=== PATIENT | female | born 1955 | race Caucasian/White ===

== ENCOUNTER → 2017-11-20 | Day surgery (SDC) | payer OTHER, MEDICARE ==
[2017-11-14 09:52] VITALS: Ht 160 cm; Wt 125.0 kg
[~2017-11-20] VITALS: Ht 160 cm; Wt 125.0 kg
[~2017-11-20] MED LIST: AMLO5TAB3 PO; ASPI-319 PO; ATEN50TA8 PO; CHOL1000 PO; FURO20TA PO; HYDR25CA PO; LIDOCAINE HCL 2% 2 ML VIAL (20MG/ML) ONE; LISI-461 PO; LISI20TA3 PO; OMEP-334 PO; ONDANSETRON INJ 2 MG/ML 2 ML VIAL IV PRN; PROPOFOL IV EMULSION 10 MG/ML 20 ML VIAL ONE; PRVC/40 PO
--- NOTE | 2017-11-20 10:13 | Endo History and Physical ---
History & Physical Date of Service: Nov 20, 2017. Chief Complaint: screening Referring Physician: Dr. Kirk History of Present Illness Patient referred for colorectal cancer screening. She recalls that she may have been diagnosed with ulcerative colitis several years ago. Her last colonoscopy was performed in 2011 and notable for normal examination aside from internal hemorrhoids and diverticulosis. Past Surgical History Hx Cardiac Surgery: No Hx Internal Defibrillator: No Hx Pacemaker: No Hx Abdominal Surgery: Yes (LAP RAFA, DEBBIE BSO) Hx of Implantable Prosthesis: No Hx Post-Op Nausea and Vomiting: No Hx Cancer Surgery: No Hx Thoracic Surgery: No Hx Orthopedic: No Hx Urinary Tract Surgery: No Family History Polyp Social History Smoking Status: Never Smoker Hx Substance Use: No Hx Alcohol Use: No Allergies Coded Allergies: Sulfa Drugs (Verified Allergy, Intermediate, MUSCLE ACHES, 11/20/17) Penicillins (Verified Allergy, Unknown, UNKNOWN, 11/20/17) TOLERATES AMOXICILLIN STATES FATHER HAD A BAD REACTION TO PENICILLIN Current Medications Reported Home Medications Medications Dose Route/Sig Max Daily Dose Days Date Category Vistaril (Hydroxyzine Pamoate) 25 Mg Cap 1 Cap PO QAM 11/14/[address] (Omeprazole) 40 Mg Cap 1 Cap PO DAILY PRN 11/14/17 Reported Pravastatin Sodium (Pravastatin Sod) 40 Mg Tab 1 Tab PO HS 11/14/17 Reported Lasix (Furosemide) 20 Mg Tab 10 Mg PO QAM 11/14/17 Reported Ecotrin Or Generic (Aspirin) 81 Mg Tab 81 Mg PO QAM 11/14/17 Reported Vitamin D3 (Cholecalciferol) 1,000 Unit Tab 1,000 Inter.unit PO QAM 04/23/14 Reported Lisinopril 10 Mg Tab 10 Mg PO 3PM 04/23/14 Reported Norvasc (Amlodipine Besylate) 5 Mg Tab 5 Mg PO HS 04/26/11 Reported Prinivil (Lisinopril) 20 Mg Tab 20 Mg PO QAM 04/26/11 Reported Tenormin (Atenolol) 50 Mg Tab 50 Mg PO BID 04/26/11 Reported Vital Signs Weight (Kilograms): 125 Height (Feet): 5 Height (Inches): 3 Date Time Temp Pulse Resp B/P (MAP) Pulse Ox O2 Delivery O2 Flow Rate FiO2 11/20/17 09:43 36.8 61 18 149/92 (111) 96 Room Air Physical Exam General Appearance: no apparent distress Respiratory/Chest: Auscultation: breath sounds normal Cardiovascular: Heart Auscultation: RRR Abdomen: Inspection & Palpation: soft Assessment and Plan Evaluation for of ulcerative colitis and colorectal cancer screening today. Patient and I have discussed the risks and benefits of colonoscopy to include bleeding infection perforation pain and missed colonic polyps.
--- NOTE | 2017-11-20 10:38 | Discharge Instructions ---
Endoscopy Patient Instructions Date / Procedure(s) Performed Nov 20, 2017. Colonoscopy Allergy Information Coded Allergies: Sulfa Drugs (Verified Allergy, Intermediate, MUSCLE ACHES, 11/20/17) Penicillins (Verified Allergy, Unknown, UNKNOWN, 11/20/17) TOLERATES AMOXICILLIN STATES FATHER HAD A BAD REACTION TO PENICILLIN Discharge Date / Findings Nov 20, 2017. Internal hemorrhoids Normal-appearing colonic mucosa, random biopsies taken Medication Instructions Reported Home Medications Medications Dose Route/Sig Max Daily Dose Days Date Category Vistaril (Hydroxyzine Pamoate) 25 Mg Cap 1 Cap PO QAM 11/14/[address] (Omeprazole) 40 Mg Cap 1 Cap PO DAILY PRN 11/14/17 Reported Pravastatin Sodium (Pravastatin Sod) 40 Mg Tab 1 Tab PO HS 11/14/17 Reported Lasix (Furosemide) 20 Mg Tab 10 Mg PO QAM 11/14/17 Reported Ecotrin Or Generic (Aspirin) 81 Mg Tab 81 Mg PO QAM 11/14/17 Reported Vitamin D3 (Cholecalciferol) 1,000 Unit Tab 1,000 Inter.unit PO QAM 04/23/14 Reported Lisinopril 10 Mg Tab 10 Mg PO 3PM 04/23/14 Reported Norvasc (Amlodipine Besylate) 5 Mg Tab 5 Mg PO HS 04/26/11 Reported Prinivil (Lisinopril) 20 Mg Tab 20 Mg PO QAM 04/26/11 Reported Tenormin (Atenolol) 50 Mg Tab 50 Mg PO BID 04/26/11 Reported Provider Instructions Activity Restrictions - No exercising or heavy lifting for 24 hours. - Do not drink alcohol the day of the procedure. - Do not drive a car or operate machinery until the day after the procedure. - Do not make any important decisions or sign important papers in 24 hours after the procedure. Following Day: - Return to full activity which may include returning to work/school. Diet Start your diet with liquids and light foods (jello, soup, juice, toast). Then eat your usual diet if not nauseated. Treatment For Common After Affects For mild abdominal pain, bloating, or excessive gas: - Rest - Eat lightly - Lie on right side Follow-Up Information Await pathology results Will likely suggest a repeat colonoscopy in 5 years Anesthesia Information What You Should Know You have had a procedure that required some medicine to reduce anxiety and discomfort. This treatment is called moderate sedation. After receiving the treatment, you may be sleepy, but you will be able to breathe on your own. The effects of the treatment may last for several hours. Follow these instructions along with Activity/Diet recommendations noted above: * Do NOT do anything where dizziness or clumsiness would be dangerous. * Rest quietly at home today, then you can be up and about tomorrow. * Have a responsible person stay with you the rest of today. * You may have had an I.V. today. If so, you may take the dressing off later today. Recommendations Call your doctor if: * Trouble breathing * Continuous vomiting for more than 24 hours * Temperature above 101 degrees * Severe abdominal pain or bloating * Pain not relieved by pain medicine ordered * There is increased drainage or redness from any incision * A large amount of rectal bleeding greater than 2-3 tablespoons. (If you had a polyp/s removed or have hemorrhoids, a small amount of blood - from the rectum is to be expected.) * You have any unanswered questions or concerns. IN THE EVENT OF A SERIOUS EMERGENCY, GO TO THE NEAREST EMERGENCY ROOM Your discharge instructions were prepared by provider Julia Cordova. Patient Instructions Signature Page Christy Galvan Patient (or Guardian) Signature/Date: I have read and understand the instructions given to me by my caregivers. Caregiver/RN/Doctor Signature/Date: The above-named patient and/or guardian has received patient instructions on this date. + Original Patient Signature Page (only) stays with chart. Please make copy for patient.
--- NOTE | 2017-11-20 10:42 | GI REPORT ---
Patient Name: Christy Galvan Procedure Date: 11/20/2017 10:20 AM Date of : 1955 Admit Type: Outpatient Age: 62 Gender: Female Attending MD: Julia Cordova DO Procedure: Colonoscopy Providers: Julia Cordova DO Referring MD: Genaro Kirk Indications: Screening for colorectal malignant neoplasm (question of Ulcerative Colitis in past) Medicines: Monitored Anesthesia Care Complications: No immediate complications. Estimated blood loss: Minimal. Estimated Blood Loss: Estimated blood loss was minimal. Procedure: Pre-Anesthesia Assessment: - Prior to the procedure, a History and Physical was performed, and patient medications, allergies and sensitivities were reviewed. The patient's tolerance of previous anesthesia was reviewed. - Patient identification and proposed procedure were verified prior to the procedure by the physician, the nurse and the loan originator. The procedure was verified in the procedure room. - Pre-procedure physical examination revealed no contraindications to sedation. - ASA Grade Assessment: III - A patient with severe systemic disease. - After reviewing the risks and benefits, the patient was deemed in satisfactory condition to undergo the procedure. - The anesthesia plan was to use monitored anesthesia care (MAC). - Immediately prior to administration of medications, the patient was re-assessed for adequacy to receive sedatives. - The heart rate, respiratory rate, oxygen saturations, blood pressure, adequacy of pulmonary ventilation, and response to care were monitored throughout the procedure. - The physical status of the patient was re-assessed after the procedure. After I obtained informed consent, the scope was passed under direct vision. Throughout the procedure, the patient's blood pressure, pulse, and oxygen saturations were monitored continuously. The scope was introduced through the anus and advanced to the terminal ileum. The colonoscopy was performed without difficulty. The patient tolerated the procedure well. The quality of the bowel preparation was adequate to identify polyps 6 mm and larger in size. Findings: The perianal and digital rectal examinations were normal. Pertinent negatives include normal sphincter tone. The terminal ileum appeared normal. Normal mucosa was found in the entire colon. Biopsies were taken with a cold forceps from the entire colon. These biopsy specimens from the right colon, left colon, transverse colon and rectum were sent to Pathology. Estimated blood loss was minimal. Internal hemorrhoids were found during retroflexion. The hemorrhoids were mild. The exam was otherwise without abnormality. Impression: - The examined portion of the ileum was normal. - Normal mucosa in the entire examined colon. Biopsied. - Internal hemorrhoids. - The examination was otherwise normal. Recommendation: - Discharge patient to home (ambulatory). - Advance diet as tolerated today. - Await pathology results. - No evidence of UC on todays exam. - Repeat colonoscopy in 5 years because the bowel preparation was suboptimal. Julia Cordova D.O. Julia Cordova, 11/20/2017 10:41:47 AM This report has been signed electronically. Note Initiated On: 11/20/2017 10:20 AM Number of Addenda: 0 I attest to the content of the Intraoperative Record and orders documented therein, exceptions below {[id number]}
[2017-11-20 11:05] VITALS: BP 135/75; PULSE 52; O2SAT 95
--- NOTE | 2017-11-20 11:16 | Anesthesiology Progress Note ---
Anesthesia Post Op Note Date & Time Nov 20, 2017 at 11:16 Vital Signs Pain Intensity: 0 Vital Signs Past 12 Hours Date Time Temp Pulse Resp B/P (MAP) Pulse Ox O2 Delivery O2 Flow Rate FiO2 11/20/17 10:50 55 20 145/81 (102) 95 Room Air 11/20/17 10:35 70 20 149/65 (93) 96 Room Air 11/20/17 09:43 36.8 61 18 149/92 (111) 96 Room Air Notes Mental Status: alert / awake / arousable, participated in evaluation Pt Amnestic to Procedure: Yes Nausea / Vomiting: adequately controlled Pain: adequately controlled Airway Patency, RR, SpO2: stable & adequate BP & HR: stable & adequate Hydration State: stable & adequate Anesthetic Complications: no major complications apparent
== END | disposition home or self-care (01) ==
LOC: C.GI 09:11
PROVIDERS: ATTEND Internal Medicine Gastroenterology
DX: Z12.11 Encounter for screening for malignant neoplasm of colon (principal); K64.8 Other hemorrhoids; I10 Essential (primary) hypertension; Z88.0 Allergy status to penicillin; Z88.2 Allergy status to sulfonamides; Z83.71 Family history of colonic polyps; Z79.82 Long term (current) use of aspirin; Z79.899 Other long term (current) drug therapy

== ENCOUNTER 2021-08-05 06:27 | Observation (INO) ==
--- NOTE | 2021-07-11 13:23 | PAT Medication Instructions ---
Medication Instructions Date of Service July 11, 2021 Home Medications aspirin 81 mg tablet,delayed release (Adult Low Dose Aspirin) 81 mg PO QAM celecoxib 100 mg capsule (Celebrex) 200 mg PO QAM lisinopril 5 mg tablet 10 - 20 mg PO BID pravastatin 10 mg tablet 40 mg PO HS acetaminophen 650 mg tablet,extended release (Tylenol Arthritis Pain) 1,300 mg PO BID amlodipine 5 mg tablet 5 mg PO HS atenolol 50 mg tablet 50 mg PO BID cholecalciferol (vitamin D3) 25 mcg (1,000 unit) capsule (Vitamin D3) 25 mcg PO QAM cyanocobalamin (vitamin B-12) 1,000 mcg tablet (Vitamin B-12) 1,000 mcg PO QAM hydroxyzine HCl 25 mg tablet 25 mg PO QAM ASK your surgeon for instructions celecoxib 100 mg capsule (Celebrex) 200 mg PO QAM DO NOT take the morning of surgery lisinopril 5 mg tablet 10 - 20 mg PO BID cholecalciferol (vitamin D3) 25 mcg (1,000 unit) capsule (Vitamin D3) 25 mcg PO QAM cyanocobalamin (vitamin B-12) 1,000 mcg tablet (Vitamin B-12) 1,000 mcg PO QAM hydroxyzine HCl 25 mg tablet 25 mg PO QAM Take morning of surgery With a small sip of water, OTHERWISE NOTHING TO EAT OR DRINK AFTER MIDNIGHT: aspirin 81 mg tablet,delayed release (Adult Low Dose Aspirin) 81 mg PO QAM (continue as normal unless told otherwise by surgeon) acetaminophen 650 mg tablet,extended release (Tylenol Arthritis Pain) 1,300 mg PO BID (okay to take up to 4 hours prior to surgery if needed) atenolol 50 mg tablet 50 mg PO BID Take evening before surgery lisinopril 5 mg tablet 10 - 20 mg PO BID pravastatin 10 mg tablet 40 mg PO HS acetaminophen 650 mg tablet,extended release (Tylenol Arthritis Pain) 1,300 mg PO BID amlodipine 5 mg tablet 5 mg PO HS atenolol 50 mg tablet 50 mg PO BID Other Notes If you have any questions please call us at [phone] or [phone] or [phone] or [phone]
--- NOTE | 2021-07-13 13:01 | Anesthesiology Consultation ---
Date of Service July 13, 2021 Assessment & Plan (1) Encounter for pre-operative examination: COVID screening: Per assessment on 07/13: No known COVID-19 positive contacts or current COVID-19 related symptoms. Travel screen negative. Patient vaccinated. Surgeon arranging preop COVID testing. Awaiting results. Chart Review Chart Review: Acceptable Risk for Surgery and Patient NOT seen in Pre Admission Testing History Surgery Operation Date: 08/05/21 10:40 Proposed Procedures p Left Total Hip Arthroplasty - Davie Vergara MD Height/Weight Height: 5 ft 3 in Weight: 134.6 kg Allergies Allergy/AdvReac Type Severity Reaction Status Date / Time Penicillins Allergy Unknown Unknown- Verified 07/13/21 12:58 listed d/t father having severe rxn Sulfa (Sulfonamide AdvReac Unknown Muscle Verified 07/13/21 12:58 Antibiotics) aches Medications Home Medications Medication Instructions Recorded Confirmed Last Taken aspirin 81 mg tablet,delayed 81 mg PO QAM 06/20/21 07/11/21 Unknown release (Adult Low Dose Aspirin) celecoxib 100 mg capsule (Celebrex) 200 mg PO QAM 06/20/21 07/11/21 Unknown lisinopril 5 mg tablet 10 - 20 mg PO BID 06/20/21 07/11/21 Unknown pravastatin 10 mg tablet 40 mg PO HS 06/20/21 07/11/21 Unknown acetaminophen 650 mg 1,300 mg PO BID 07/11/21 07/11/21 Unknown tablet,extended release (Tylenol Arthritis Pain) amlodipine 5 mg tablet 5 mg PO HS 07/11/21 07/11/21 Unknown atenolol 50 mg tablet 50 mg PO BID 07/11/21 07/11/21 Unknown cholecalciferol (vitamin D3) 25 25 mcg PO QAM 07/11/21 07/11/21 Unknown mcg (1,000 unit) capsule (Vitamin D3) cyanocobalamin (vitamin B-12) 1,000 mcg PO QAM 07/11/21 07/11/21 Unknown 1,000 mcg tablet (Vitamin B-12) hydroxyzine HCl 25 mg tablet 25 mg PO QAM 07/11/21 07/11/21 Unknown Past Medical History Medical History Anxiety High cholesterol Borderline Hypertension Mitral valve disease Mild thickening of the anterior mitral valve leaflets without prolapse and only trace NV per 2018 echo Morbid obesity Osteoarthritis Exercise / Class Metabolic Activity III < 4 Walking/Shop/Light housework (uses cane) Past Family History Family History Mother Family history of diabetes mellitus Grandmother Family history of diabetes mellitus Other Deep vein thrombosis Heart disease Stroke Past Surgical History Surgical History History of cataract surgery R&L History of colonoscopy History of dental surgery IMPLANT FRONT RIGHT TOOTH History of hysterectomy History of total left knee replacement Past Anesthesia History No Family Hx of Anesthesia Complications and Other (Post-op low O2 sats with anesthesia emergence*) History of PONV No Hx of PONV and No Hx of Motion Sickness Social History Smoking Status: Never smoker Do You Dip or Chew Tobacco: No Hx Alcohol Use: No Hx Substance Use: No substance use type: does not use Review of Systems Patient denies chest pain, shortness of breath, fever, chills, cough, wheezing, palpitations. Physical Exam Vital Signs VITALS BP 142/82 P 57 TEM 98.4P SP02 95%RA RESP 16 PHYSICAL Full cervical extension range of motion. Full TMJ range of motion. TMD 4 finger breaths Mallampati Score 3 Dentition: intact, upper front right implant Lungs: clear throughout to auscultation Cardiac: regular rate and rhythm, no murmurs noted Spine: normal Carotid arteries: negative bruit Extremities: trace LE non-pitting edema Lab Results Anesthesia Preop Results Results Anesthesia Widget: WBC 7.64 K/uL (4.8-10.8) 07/13/21 Hgb 13.1 g/dL (12.0-16.0) 07/13/21 Hct 39.9 % (37-47) 07/13/21 Plt 297 K/uL (130-400) 07/13/21 Na 136 mmol/L (136-145) 07/13/21 K 4.7 mmol/L (3.5-5.1) 07/13/21 Cl 102 mmol/L (98-107) 07/13/21 CO2 28 mmol/L (21-32) 07/13/21 BUN 21 mg/dl (6-23) 07/13/21 Creat 0.89 mg/dl (0.6-1.2) 07/13/21 Glucose Level 90 mg/dl (70-99(Fasting)) 07/13/21 PT 10.4 Seconds (9.0-12.0) 07/13/21 PTT 27.3 Seconds (21.0-31.0) 07/13/21 INR 1.0 (0.9-1.1) 07/13/21 Blood Type O Positive 07/13/21 Antibody Screen NEGATIVE 07/13/21 Testing Electrocardiogram Date: 07/13/20 SB at 59bpm. Chest X-Ray Date: 07/13/21 FINDINGS: Unchanged subcentimeter calcified granuloma of right lung apex. Cardiomegaly. No pneumothorax, pleural effusion, airspace consolidation or overt pulmonary edema. Degenerative changes of the shoulders and spine. Cholecystectomy. IMPRESSION: Cardiomegaly without acute process. Echocardiogram Date: 01/01/18 LVEF 55-59%. No regional motion abnormality. Mild LAE. Grade 2 diastolic dysfunction. Moderately increased concentric LV wall thickness. Mild thickening of the anterior mitral valve leaflets without prolapse and only trace NV.
--- NOTE | 2021-07-30 10:41 | History and Physical Report ---
DATE OF ADMISSION: 08/05/2021. CHIEF COMPLAINT: Left hip pain. HISTORY OF PRESENT ILLNESS: The patient is a 65-year-old female well known to me from previous left knee replacement done about 10 years ago. She has done well from a knee standpoint. Over the past s everal years, she has developed increased pain and discomfort in her left hip. Over the past 6-7 mon ths, it has gradually progressed to the point where she has had to use a cane to get around. She rukhsana cribes groin and thigh pain. She has tried medicines without much relief. Pain has become more disa yeison. She can only walk a block or two and that is about it. She would like to have her hip fixed. PAST MEDICAL HISTORY: Significant for: 1. Hypertension. 2. Low back pain/sciatica. 3. Morbid obesity with a BMI of 53. PAST SURGICAL HISTORY: Includes: 1. Left knee replacement 10 years ago. 2. Hysterectomy. ALLERGIES: SULFA. ALSO REPORTS AN ALLERGY TO PENICILLIN, BUT HAS NEVER TAKEN IT. IT IS APPARENTLY A FAMILY REACTION. CURRENT MEDICATIONS: Includes: 1. Lisinopril. 2. Amlodipine. 3. Pravastatin. SOCIAL HISTORY: A 65-year-old female. She lives in [place]. Does not drink or smoke. FAMILY HISTORY: Noncontributory. She has no history of DVT or PE. There is a family history of richard e DVTs. No known clotting disorder. PHYSICAL EXAMINATION: GENERAL: Shows a pleasant, obese, middle-aged female. Looks to be in reasonably good health. HEENT: Benign. NECK: Supple. No lymphadenopathy. LUNGS: Clear to auscultation. HEART: Has a regular rate and rhythm. ABDOMEN: Soft, nontender, nondistended. EXTREMITIES: Grossly neurovascularly intact except as follows. Examination of the left hip and leg reveals the patient walks with a very stiff antalgic gait. Leg l engths appear pretty equal. She has got a very large soft tissue envelope. She has got pain with an y type of hip motion. She can internally rotate to neutral. Negative straight leg raise. Her knee incision has healed nicely without signs or swelling. Knee motion is 0 to about 110-115, limited by soft tissues. X-RAYS: X-rays of the left hip were reviewed. It shows advanced left hip DJD. She has complete los s of her joint space. She has got cystic changes on both sides of the joint. ASSESSMENT: A 65-year-old female 10 years out from a left knee replacement with medical comorbiditie s including hypertension, back arthritis and morbid obesity with advanced left hip degenerative joint disease. Pain has become debilitating and she would like to have her hip replaced. She is morbidly obese and increased risk as a result. She is aware of that and would like to proceed. PLAN: We will take her to the operating room and do left total hip replacement. The risks and benef its of this procedure were explained to the patient and include but not limited to DVT, PE, , in fection, neurological injury, vascular injury, bleeding problem, pain, limited range of motion, stiff ness, failure to relieve her symptoms, incomplete relief of symptoms, need for further surgery in the future, etc. The patient understands and desires to proceed. Informed consent was obtained. I did explain to her in depth that with her large size, she is at increased risk for infection and thrombo sis and she is aware and would like to proceed. We will likely use a wound VAC and have home health visit her. We did talk about holding her lisinopril on the morning of surgery. Job ID: [id number]
[~2021-08-05 06:27] MED LIST changes: +ACETAMINOPHEN 500 MG TAB PO SCH; -AMLO5TAB3 PO; -ASPI-319 PO; -ATEN50TA8 PO; -CHOL1000 PO; +FAMOTIDINE 20 MG TAB PO SCH; -FURO20TA PO; +GABAPENTIN 300 MG CAP PO SCH; -HYDR25CA PO; -LIDOCAINE HCL 2% 2 ML VIAL (20MG/ML) ONE; -LISI-461 PO; -LISI20TA3 PO; +LR 500ML BOLUS, THEN 15ML/HR IV SCH; +LR 60ML/HR IV SCH; +METOCLOPRAMIDE HCL 10 MG TABLET PO SCH; -OMEP-334 PO; -ONDANSETRON INJ 2 MG/ML 2 ML VIAL IV PRN; -PROPOFOL IV EMULSION 10 MG/ML 20 ML VIAL ONE; -PRVC/40 PO; +Scopolamine 1 MG TDSY TD SCH; +TRANEXAMIC ACID 1,000 MG **IV Pre-op IV SCH; +ceFAZolin 2000MG 2,000 MG/15 ML SYR IV SCH
[2021-08-05] MEDS ORDERED: BUPIVACAINE 0.5 % 5 MG/1 ML PF 10ML VIAL ONE (06:31)
--- NOTE | 2021-08-05 06:55 | History & Physical Bridge Note ---
Date of Service August 05, 2021 History & Physical Bridge Note I have examined the patient, reviewed the History & Physical and in the interval since the performance of the History & Physical I have noted the following changes of clinical significance: no changes noted
[2021-08-05] MEDS ORDERED: MIDAZOLAM HCL 1 MG/ML 2ML VIAL ONE (07:13)
[2021-08-05] MEDS ORDERED: MoRPHine SULFATE PF 1 MG/ML 10 ML AMP/VIAL ONE (07:13)
[2021-08-05] MEDS ORDERED: PROPOFOL IV EMULSION 10 MG/ML 20 ML VIAL IV ONE ×4 (07:13→10:38)
[2021-08-05] MEDS ORDERED: EPINEPHrine INJ 1 MG/ML AMP ONE (08:49)
[2021-08-05] MEDS ORDERED: BUPIVACAINE 0.5 % 5 MG/1 ML MPF 30ML VIAL ONE (08:49)
[2021-08-05] MEDS ORDERED: NALOXONE HCL 1 MG in SODIUM CHLORIDE 0.9% 1000ML 1,000 ML IV PRN (09:28)
[2021-08-05] MEDS ORDERED: HYDROmorphone INJ 0.5 MG/0.5 ML SYR IV PRN (09:28)
[2021-08-05] MEDS ORDERED: MoRPHine SULFATE PF 1 MG/ML 10 ML AMP/VIAL INT SPINAL ONE (09:28)
[2021-08-05] MEDS ORDERED: NALOXONE HCL 0.08 MG in SYRINGE 1.8 ML IV PRN (09:28)
[2021-08-05] MEDS ORDERED: diphenhydrAMINE 50 MG/ML VIAL IV PRN (09:28)
[2021-08-05] MEDS ORDERED: PROMETHAZINE HCL 12.5 MG in SODIUM CHLORIDE 0.9% 50 ML IV PRN (09:28)
[2021-08-05] MEDS ORDERED: LACTATED RINGER'S 500 ML IV PRN (09:28)
[2021-08-05] MEDS ORDERED: ePHEDrine sulfate 50 MG/ML AMP IV PRN (09:28)
[2021-08-05] MEDS ORDERED: METOCLOPRAMIDE HCL 10 MG in SODIUM CHLORIDE 0.9% 50 ML IV PRN (09:28)
[2021-08-05] MEDS ORDERED: KETOROLAC 30 MG/ML VIAL IV PRN (09:28)
[2021-08-05] MEDS ORDERED: NALBUPHINE HCL INJ 10 MG/ML AMP IV PRN (09:28)
[2021-08-05] MEDS ORDERED: NALOXONE HCL 0.4 MG/1 ML VIAL/CARP IV PRN ×2 (09:28→14:41)
[2021-08-05] MEDS ORDERED: DC INTRASPINAL MORPHINE SCH (09:30)
[2021-08-05] MEDS ORDERED: SODIUM CHLORIDE 0.9% 1000ML 1,000 ML IV SCH (09:30)
[2021-08-05] MEDS ORDERED: NO NARCOTICS OR SEDATIVES SCH (09:30)
[2021-08-05] MEDS ORDERED: ePHEDrine sulfate 50 MG/ML SYR ONE (09:40)
[2021-08-05] MEDS ORDERED: PHENYLEPHRINE 100MCG/ML 5ML SYR ONE (09:40)
--- NOTE | 2021-08-05 11:37 | Operative Report ---
PG Post Operative Report Pre & Post Diagnosis Operation Date: 08/05/21 08:50 Pre-Op Diagnosis: Left Hip Advanced Degenerative Joint Disease Post-Op Diagnosis: Left Hip Advanced Degenerative Joint Disease I identified the patient and participated in the time-out.: Yes Procedure Operation Date: 08/05/21 08:50 Actual Procedures p Left Total Hip Arthroplasty--Uncemented(Left) - Davie Vergara MD Surgeon Davie Vergara MD Tile Layer Rusty Trujillo PA-C Estimated Blood Loss 200 Findings Consistent with Post-Op Diagnosis Operative findings revealed a very large soft tissue envelope. She had extensive grade 4 [id number] disease of the femoral head and acetabulum. The look to be an inflammatory component with extensive cyst particular in the acetabulum. Moderate-sized joint effusion. Specimens Left femoral head sent for pathology Anesthesia Type Spinal MAC Complications none Disposition Accompanied Patient To Recovery: Yes Indications Patient is 65-year-old female is had a several year history of increasing left hip pain discomfort is gotten markedly worse over the past year. X-rays showed advanced hip DJD. She failed conservative measures. Patient is morbidly obese and trying to lose weight but unsuccessfully. She was strongly desiring total hip arthroplasty to relieve her hip pain. Description of Procedure Operative implants consist of: 1. Biomet G7 size 52 mm acetabular shell. 2. 6.5 cancellous acetabular screws 135 mm length, 1 of 25 mm length. 3. [place] hole traffic manager. 4. Highly cross-linked polyethylene liner with a 52 mm outer diam and 36 mm inner diameter. 5. DePuy Corail size 11 short neck KLA femoral stem. 6. +1.5/36 mm ceramic articular ball. The patient was taken the operating, identified, placed on the operating table supine position protectors were properly padded. IV antibiotics tried by anesthesia team. A spinal anesthetic and been implemented in the holding area. Howell catheter was placed in the sterile fashion. The patient was then placed in the right lateral decubitus position. Due to her morbid obesity this took extra time and difficulty in positioning the patient. Stulberg hip positioner was used for positioning and all contact areas were meticulously padded. The left hip was then prepped and draped in usual sterile fashion. Posterior lateral approach to the left hip was then performed to a curvilinear incision centered over the greater trochanter. Sharp dissection scalp through subcutaneous tissues down the IT band gluteal fascia. The soft tissue envelope was extremely thick. The IT band gluteal fascia then incised longitudinally along with skin incision. The underlying greater bursa was excised. The piriformis and external rotators along with the posterior hip joint capsule were then released from the posterior aspect hip joint as a single layer. Great care was taken throughout the procedure protect the sciatic nerve at all times. Hip was internally rotated and dislocated. Femoral neck osteotomy cut was made with a Final Cut about 12 mm above the lesser trochanter. Femoral head was removed and sent for pathology. The femur was retracted anteriorly. Attention drawn the acetabulum. The acetabular labrum was excised. The pulvinar fat was excised. Sequential reaming the acetabular was then performed beginning with a size 43 and progressing up to 51. I did ream some with a 52 reamer and then placed a 52 mm cup in about 40 degrees lateral opening and 20 degrees of anteversion. We tried air a little bit more a more anteversion due to her large soft tissue envelope and concerns of instability. A trial liner was placed. Attention drawn the femur. The proximal femur was entered with a Medocity cutter followed by canal finder. I then broached beginning with a size 8 and progressing up to a 10. We got pretty good fit a 10. The calcar reamer was used smooth and off the calcar. We trialed the hip and had difficulty relocating the hip and with the standard neck. Therefore we went down to the short neck. Even with a short neck, the +5 articular ball we was able to be relocated but seemed tight in extension. Therefore, we elected to place a 1.5 articular ball. Hip was located and seemed looser and appropriate leg length robotics. Hip was extremely stable in full extension and external rotation and flexion to 90 degrees internal Tatian over 50 degrees. There was a little bit of shock which was appropriate. I elect to place these implants. All trial implants were removed. Upon removing the femoral stem there was some rotation and so we did broach up to a size 11. The apex hole traffic manager was then placed. I did attempt to place a liner but was unable to seated for unclear reasons. I took this liner out tried again was unsuccessful. We opened up a new liner and I was able to place that liner without difficulty. Attention drawn the femur. The femoral implant was then placed. It was 11 KLA femoral stem. A +1.5/36 mm ceramic articular ball was placed. Hip was located once again found to be stable. Attention drawn toward closing. The wound was irrigated scope sounds pulsatile lavage solution. We did inject locally with 60 cc of half percent Marcaine with epinephrine. Posterior capsule and external rotators repaired through drill holes in the posterior trochanter with #2 Tycron suture. The IT band gluteal fascia then closed in 1 PDS suture running fashion the subcutaneous tissue then closed with 2 layers with a deep layer #2 Vicryl suture and subcutaneous tissues with 2-0 Dexon suture in a buried interrupted fashion. Skin was closed with skin jt. Leg was then cleaned and dried. A Prevena VAC wound VAC dressing was placed due to her a very large size and soft tissue envelope and increased risk of infection. The patient was then transferred to the recovery room in stable condition. Patient tolerated procedure well and there are no complications. Rusty Trujillo, my physician blacksmith assistant, was present for the entire procedure. His assistance was essential and required for appropriate patient positioning, prepping and draping, surgical exposure, performing the technical details of the operation, placement the implants, closure of the wound, and placement of the sterile bandage. This patient is morbidly obese with a BMI of 53+. Her obesity made this surgery extremely more difficult. It took more time and more effort in every aspect of the surgery including placed in the Howell catheter, positioning the patient, prepping and draping, surgical exposure, replacing the hip joint and closing the wound up. I attest to the content of the Intraoperative Record and any orders documented therein. Any exceptions are noted below.
[2021-08-05] MEDS ORDERED: MEPERIDINE HCL 25 MG/ML CARP/VIAL ONE (11:47)
[2021-08-05] MEDS ORDERED: MEPERIDINE HCL 25 MG/ML CARP/VIAL IV STA (11:59)
--- NOTE | 2021-08-05 12:12 | Anesthesiology Progress Note ---
Date of Service August 05, 2021 Anesthesia Post Procedure Vital Signs Vital Signs: Temp Pulse Resp BP Pulse Ox 08/05/21 12:00 36.4 C L 62 18 152/79 H 100 08/05/21 11:50 66 18 121/99 100 08/05/21 11:40 69 18 102/78 99 08/05/21 11:30 60 18 146/100 H 100 08/05/21 11:21 36.4 C L 72 18 121/76 100 08/05/21 07:20 36.9 C 62 20 167/83 H 96 Pain Intensity Right Hip: Pain Intensity: 9 Transfer of Care Handoff Completed per policy Notes Mental Status: alert / awake / arousable and participated in evaluation Patient Amnestic to Procedure: Yes Nausea / Vomiting: adequately controlled Pain: adequately controlled Airway Patency, RR, SpO2: stable & adequate BP & HR: stable & adequate Hydration State: stable & adequate Neuraxial Anesthesia: was administered and sensory block is resolving Anesthetic Complications: no major complications apparent
--- NOTE | 2021-08-05 12:35 | XRay Report ---
AP PELVIS, CROSSTABLE LATERAL LEFT HIP History: Left total hip arthroplasty. Degenerative arthritis. Postop. FINDINGS: The patient is status post a left total hip arthroplasty. The hardware is intact. No fractu re or dislocation. Skin jt and surgical drains are in place. IMPRESSION: Left total hip arthroplasty. No evidence for hardware complication. ACT 112: Negative or not required by law. Electronically signed by: Xavier Oscar M.D. 08/05/2021 12:32 PM
[2021-08-05] MEDS ORDERED: bisacodyL 10 MG SUPP PR PRN (14:41)
[2021-08-05] MEDS ORDERED: ALUMINUM/MAGNESIUM SUSP 30 ML UDC PO PRN (14:41)
[2021-08-05] MEDS ORDERED: MAGNESIUM HYDROXIDE SUSP 30 ML UDC PO PRN (14:41)
[2021-08-05] MEDS: SODIUM CHLORIDE 0.9% 1000ML 1,000 ML IV SCH (15:26)
[2021-08-05] MEDS: ACETAMINOPHEN 500 MG TAB PO SCH ×2 (15:26→19:59)
[2021-08-05] MEDS: Scopolamine CHECK PATCH PLACEMENT SCH (15:29)
[2021-08-05] MEDS: ASCORBIC ACID 500 MG TAB PO SCH (17:19)
[2021-08-05] MEDS ORDERED: TRANEXAMIC ACID / 0.7% NACL 1,000 MG/100 ML BAG IV SCH (17:30)
[2021-08-05] MEDS: ceFAZolin 2000MG 2,000 MG/15 ML SYR IV SCH (17:48)
--- NOTE | 2021-08-05 18:01 | Progress Notes ---
DATE OF SERVICE: 08/05/2021 SUBJECTIVE: A 65-year-old female postoperative from a left hip replacement. She is doing pretty wel l. Really no pain yet. No chest pain or shortness of breath. Not feeling dizzy or lightheaded. OBJECTIVE: VITAL SIGNS: Temperature 36.9. Vital signs are stable. PHYSICAL EXAMINATION: GENERAL: Shows a pleasant middle-aged female. She is sitting up in bed and talking to her , looks comfortable. LUNGS: Clear to auscultation. HEART: Regular rate and rhythm. ABDOMEN: Soft, nontender, nondistended. EXTREMITIES: Grossly neurovascularly intact except as follows: Examination of the left leg reveals the Prevena VAC dressing to be in place. Very large soft tissue envelope. Leg lengths appear equal. She can dorsiflex and plantarflex her foot appropriately. She is neurologically intact. X-RAYS: X-rays of the left hip from recovery room are reviewed. It shows left uncemented total hip arthroplasty. Components looked to be in good position. No signs of problems. ASSESSMENT: A 65-year-old female with morbid obesity, now postoperative from a left hip replacement, doing reasonably well. Hip is located. She is neurologically intact. PLAN: 1. DVT prophylaxis includes thigh-high TEDs, SCDs, and aspirin twice a day. 2. PT/OT. Weight bear as tolerated. Left total hip protocol. 3. Pain control, doing okay with current pain regimen. 4. IV antibiotics x24 hours. 5. Disposition: Plan to discharge to home with some home health once adequately recovered and medic ally stable. We will have to see how she does in therapy. Job ID: [id number]
[2021-08-05] MEDS: PRAVASTATIN SOD 40 MG TAB PO SCH (19:59)
[2021-08-05] MEDS: SENNA 8.6 MG TAB PO SCH (19:59)
[2021-08-05] MEDS: ASPIRIN 81 MG ECTAB PO SCH (20:00)
[2021-08-05] MEDS: DOCUSATE SODIUM 100 MG CAP PO SCH (20:00)
[2021-08-05] MEDS: amLODIPine BESYLATE 5 MG TAB PO SCH (20:01)
[2021-08-05] MEDS: ATENOLOL 50 MG TABLET PO SCH (20:01)
[2021-08-05] MEDS: lisinopril 10 MG TAB PO SCH (20:02)
[2021-08-06] MEDS: ceFAZolin 2000MG 2,000 MG/15 ML SYR IV SCH (01:26)
[2021-08-06] MEDS: SODIUM CHLORIDE 0.9% 1000ML 1,000 ML IV SCH ×2 (01:26→07:00)
[2021-08-06] MEDS: Scopolamine CHECK PATCH PLACEMENT SCH ×4 (01:27→22:37)
[2021-08-06] MEDS ORDERED: METOCLOPRAMIDE HCL INJ 5 MG/ML 2 ML VIAL IV PRN (03:30)
[2021-08-06] MEDS ORDERED: diphenhydrAMINE Capsule 25 MG CAP PO PRN (03:30)
[2021-08-06] MEDS ORDERED: HYDROmorphone INJ 0.5 MG/0.5 ML SYR IV PRN (03:30)
[2021-08-06] MEDS ORDERED: ONDANSETRON INJ 2 MG/ML 2 ML VIAL IV PRN (03:30)
[2021-08-06] MEDS ORDERED: oxyCODONE HCL IR 5 MG TAB (IMMEDIATE RELEASE) PO PRN (03:30)
[2021-08-06] MEDS: ACETAMINOPHEN 500 MG TAB PO SCH ×3 (05:49→20:38)
[2021-08-06] MEDS: KETOROLAC 30 MG/ML VIAL IV SCH ×5 (05:49→20:37)
[2021-08-06 06:58] LABS: Basophils # (auto) 0.01 K/uL (0-0.2); Basophils % (auto) 0.1 %; Eosinophils # (auto) 0.08 K/uL (0-0.5); Eosinophils % (auto) 0.9 %; Hematocrit (blood only) 33.6 % (37-47); Immature Granulocytes # (auto) 0.03 K/uL (0.00-0.02); Immature Granulocytes % (auto) 0.3 %; Lymphocytes # (auto) 1.07 K/uL (1.2-3.4); Lymphocytes % (auto) 11.4 %; Mean Corpuscular Hemoglobin 30.8 pg (25-34); Mean Corpuscular Hgb Conc 32.7 g/dL (32-36); Mean Corpuscular Volume 94.1 fL (80-100); Mean Platelet Volume 11.6 fL (7.4-10.4); Monocytes # (auto) 0.88 K/uL (0.11-0.59); Monocytes % (auto) 9.4 %; Neutrophils # (auto) 7.28 K/uL (1.4-6.5); Neutrophils % (auto) 77.9 %; Platelet Count 221 K/uL (130-400); RDW Coefficient of Variation 13.4 % (11.5-14.5); RDW Standard Deviation 46.7 fL (36.4-46.3); Red Blood Count 3.57 M/uL (4.2-5.4); White Blood Count 9.35 K/uL (4.8-10.8)
[2021-08-06 07:26] LABS: BUN Creatinine Ratio 26.5 (10-20); Calcium 8.4 mg/dl (8.5-10.1); Creatinine Clr Calc Pharmacy 75.5 ml/min; Est GFR (African American) 67.3 ml/min; Est GFR (Non-African American) 58.1 ml/min; Potassium 4.1 mmol/L (3.5-5.1)
[2021-08-06] MEDS ORDERED: dexAMETHasone 10 MG in SYRINGE 0 ML IV SCH (08:00)
[2021-08-06] MEDS: MULTIVITAMIN TAB PO SCH (08:16)
[2021-08-06] MEDS: FUROSEMIDE 20 MG TAB PO SCH (08:16)
[2021-08-06] MEDS: ASPIRIN 81 MG ECTAB PO SCH ×2 (08:16→20:38)
[2021-08-06] MEDS: CYANOCOBALAMIN (B-12) 500 MCG TABLET PO SCH (08:16)
[2021-08-06] MEDS: CHOLECALCIFEROL 1,000 UNITS 25 MCG TAB PO SCH (08:16)
[2021-08-06] MEDS: ASCORBIC ACID 500 MG TAB PO SCH ×2 (08:16→15:47)
[2021-08-06] MEDS: hydrOXYzine HCl 25 MG TAB PO SCH (08:16)
[2021-08-06] MEDS: DOCUSATE SODIUM/SENNA 50/8.6MG TAB PO SCH (08:16)
[2021-08-06] MEDS: DOCUSATE SODIUM 100 MG CAP PO SCH ×2 (08:16→20:39)
[2021-08-06] MEDS: ATENOLOL 50 MG TABLET PO SCH ×2 (08:16→15:47)
[2021-08-06] MEDS: lisinopril 10 MG TAB PO SCH ×2 (08:17→20:38)
--- NOTE | 2021-08-06 08:45 | Progress Notes ---
DATE OF SERVICE: 08/06/2021. SUBJECTIVE: A 65-year-old female postoperative day 1 from a left uncemented total hip replacement. She is morbidly obese. She has been doing okay. Pain seems to be reasonably controlled. She got up and took a couple of steps, but not more than that so far. OBJECTIVE: VITAL SIGNS: Temperature 37.1. Vital signs are stable. GENERAL: Shows a pleasant middle-aged female. She is lying in bed, looks pretty comfortable this mo rning. EXTREMITIES: Examination of the left leg reveals the leg lengths to be equal. Dressing is clean, dr y and intact. The Prevena VAC dressings in place. Thigh is soft and supple. She is neurologically intact. LABORATORY DATA: Hemoglobin 11.0. Hematocrit 33.6. Electrolytes are stable. ASSESSMENT: A 65-year-old female postoperative day 1 from a left total hip replacement, doing reason ably well. She is morbidly obese and mobilizing her may be difficult. PLAN: 1. DVT prophylaxis includes thigh-high TEDs, SCDs, and aspirin twice a day. 2. PT, OT, weightbear as tolerated. Left total hip protocol. 3. Pain control, doing okay with current pain regimen. 4. Disposition: We will have to see how therapy goes today. As far as mobilization and safety issu es whether she will be able to go home or may need a rehab stay. We will see how therapy goes today. Job ID: [id number]
[2021-08-06] MEDS: cephALEXin 500 MG CAP PO SCH ×4 (12:18→20:38)
[2021-08-06] MEDS: SENNA 8.6 MG TAB PO SCH (20:38)
[2021-08-06] MEDS: amLODIPine BESYLATE 5 MG TAB PO SCH (20:38)
[2021-08-06] MEDS: PRAVASTATIN SOD 40 MG TAB PO SCH (20:38)
[2021-08-06] MEDS ORDERED: CEFADROXIL 500 MG PO SCH (21:00)
[2021-08-07] MEDS: KETOROLAC 30 MG/ML VIAL IV SCH (05:36)
[2021-08-07] MEDS: ACETAMINOPHEN 500 MG TAB PO SCH (05:36)
[2021-08-07] MEDS: CYANOCOBALAMIN (B-12) 500 MCG TABLET PO SCH (07:45)
[2021-08-07] MEDS: cephALEXin 500 MG CAP PO SCH (07:45)
[2021-08-07] MEDS: DOCUSATE SODIUM/SENNA 50/8.6MG TAB PO SCH (07:45)
[2021-08-07] MEDS: CHOLECALCIFEROL 1,000 UNITS 25 MCG TAB PO SCH (07:46)
[2021-08-07] MEDS: MULTIVITAMIN TAB PO SCH (07:46)
[2021-08-07] MEDS: ASPIRIN 81 MG ECTAB PO SCH (07:46)
[2021-08-07] MEDS: FUROSEMIDE 20 MG TAB PO SCH (07:46)
[2021-08-07] MEDS: ASCORBIC ACID 500 MG TAB PO SCH (07:46)
[2021-08-07] MEDS: DOCUSATE SODIUM 100 MG CAP PO SCH (07:46)
[2021-08-07] MEDS: ATENOLOL 50 MG TABLET PO SCH (07:46)
[2021-08-07] MEDS: lisinopril 10 MG TAB PO SCH (07:46)
[2021-08-07] MEDS: hydrOXYzine HCl 25 MG TAB PO SCH (07:46)
[2021-08-07] MEDS: Scopolamine CHECK PATCH PLACEMENT SCH (07:47)
--- NOTE | 2021-08-07 09:09 | Progress Notes ---
DATE OF SERVICE: 08/07/2021. SUBJECTIVE: A 65-year-old female postoperative day 2 from a left hip replacement. She is doing much better today. Pain is controlled. Feels like she is getting around much more safely and almost ind ependently. OBJECTIVE: VITAL SIGNS: Temperature 36.5. Vital signs are stable. GENERAL: Shows an obese, middle-aged female. She is sitting up in her bedside, looks pretty comfort able. EXTREMITIES: Examination of the left hip reveals the Prevena VAC dressing to be in place. Leg lengt hs are equal. Thigh is soft and supple. She is neurologically intact. ASSESSMENT: A 65-year-old female postoperative day 2 from a left hip replacement, doing much better. There was some concern about maybe going to rehab, but she feels like she is doing well and wants t o go home. PLAN: 1. DVT prophylaxis includes thigh-high TEDs, SCDs, and aspirin twice a day. 2. PT, OT, weightbear as tolerated. Left total hip protocol. 3. Pain control, going okay with current pain regimen. 4. Disposition: At this point, we are going to plan on sending her home, if she does okay in therap y today. We will see how therapy goes. Any orthopedic questions can be directed to me at . Job ID: [id number]
--- NOTE | 2021-08-11 14:00 | Discharge Summary ---
Date of Service August 11, 2021 Discharge Data Procedures Performed Operation Date: 08/05/21 08:50 Actual Procedures p Left Total Hip Arthroplasty(Left) - Davie Vergara MD Hospital Course (1) S/P total left hip arthroplasty: This patient is a 65 year old female admitted on 08/05/21 and underwent total hip arthroplasty. She tolerated the procedure well and there were no complications. Transferred to the PACU post op and later to the orthopedic floor for further care. She was given ancef for antibiotic prophylaxis. She was also given TAMIKO stockings, SCDs, and aspirin for DVT prophylaxis. Hemoglobin, hematocrit, and vital signs were monitored during her hospital stay and remained stable. Did not require any blood transfusions. There were no complications during her hospital stay. By post op day #1 the patient was tolerating a regular diet, pain was reasonably controlled with oral pain medicine, and she was participating in physical therapy. On post op day #1 the patient was discharged home and set up with home health care. She was given printed discharge instructions including prescriptions for extra strength tylenol, aspirin, toradol, zofran, cefadroxil, and oxycodone. Continue physical therapy, weight bearing as tolerated. Continue hip precautions. Continue TAMIKO stockings. Follow up approximately 2 weeks post op or sooner if there are problems or concerns. Coding Level of Care Code None Diagnoses S/P total left hip arthroplasty Z96.642
== END 2021-08-07 10:39 | disposition home health service (06) ==
LOC: 3E 06:27 → ASU 06:27